=== PATIENT | female | born 2000 | race American Indian/Alaskan Native ===

== ENCOUNTER 2022-06-12 05:59 | Emergency (ER) | payer OTHER ==
[2022-06-12] MEDS ORDERED: SODIUM CHLORIDE 0.9% 1000 ML 1,000 ML IV ONE (11:32)
--- NOTE | 2022-06-12 11:55 | XRay Report ---
CHEST 2 VIEWS INDICATION / CLINICAL INFORMATION: cough. COMPARISON: None available. FINDINGS: SUPPORT DEVICES: None. HEART / MEDIASTINUM: No significant abnormality. LUNGS / PLEURA: No significant pulmonary or pleural abnormality. No pneumothorax. ADDITIONAL FINDINGS: No significant additional findings. IMPRESSION: 1. No acute findings. Signer Name: Sadi Vang MD Signed: 06/12/2022 11:50 AM Workstation Name: [id number]
--- NOTE | 2022-06-12 11:58 | Emergency Department Report ---
- General Chief Complaint: Fever Stated Complaint: SICK (FEVER) Source: EMS Mode of arrival: Stretcher Limitations: No Limitations - History of Present Illness Initial Comments: 21-year-old female presents to the ED complaining of headache ,fever ,cough and weakness x 2 days. She states that her child is sick with similar symptoms. Patient is alert and oriented x3. No acute distress noted no ill appearance noted. Denies taking any prior medication to arrival. Patient denies any past medical history. Patient denies any shortness of breath or chest pain at present time. No acute distress noted. No ill appearance noted. He is alert and oriented times.] MD Complaint: fever, cough, nasal congestion, sinus pain Onset/Timin -: days(s) - Related Data Previous Rx's Medication Instructions Recorded Last Taken Type Amoxicillin/K Clav Tab [Augmentin 1 tab PO Q12HR 10 Days #20 tab 06/12/22 Unknown Rx 875 mg] Brompheniramine/Pseudoephed/Dm 5 ml PO DAILY 5 Days #118 ml 06/12/22 Unknown Rx [Bromfed Dm Cough Syrup] Ketorolac [Toradol] 10 mg PO Q6H PRN 5 Days #20 tab 06/12/22 Unknown Rx predniSONE [Deltasone] 50 mg PO QDAY 5 Days #5 tab 06/12/22 Unknown Rx Allergies Allergy/AdvReac Type Severity Reaction Status Date / Time No Known Allergies Allergy Unverified 06/12/22 06:12 ED Review of Systems ROS: Stated complaint: SICK (FEVER) Other details as noted in HPI Constitutional: denies: chills, fever Eyes: denies: eye pain, eye discharge, vision change ENT: throat pain. denies: ear pain Respiratory: cough. denies: shortness of breath, wheezing Cardiovascular: denies: chest pain, palpitations Endocrine: no symptoms reported Gastrointestinal: denies: abdominal pain, nausea, diarrhea Genitourinary: denies: urgency, dysuria, discharge Musculoskeletal: denies: back pain, joint swelling, arthralgia Skin: denies: rash, lesions Neurological: denies: headache, weakness, paresthesias Psychiatric: denies: anxiety, depression Hematological/Lymphatic: denies: easy bleeding, easy bruising ED Past Medical Hx - Past Medical History Previous Medical History?: Yes Hx Asthma: Yes - Surgical History Past Surgical History?: No - Social History Smoking Status: Never Smoker Substance Use Type: None - Medications Home Medications: Home Medications Medication Instructions Recorded Confirmed Last Taken Type Amoxicillin/K Clav Tab [Augmentin 1 tab PO Q12HR 10 Days #20 tab 06/12/22 Unknown Rx 875 mg] Brompheniramine/Pseudoephed/Dm 5 ml PO DAILY 5 Days #118 ml 06/12/22 Unknown Rx [Bromfed Dm Cough Syrup] Ketorolac [Toradol] 10 mg PO Q6H PRN 5 Days #20 tab 06/12/22 Unknown Rx predniSONE [Deltasone] 50 mg PO QDAY 5 Days #5 tab 06/12/22 Unknown Rx ED Physical Exam - General Limitations: No Limitations General appearance: alert, in no apparent distress - Head Head exam: Present: atraumatic, normocephalic - Eye Eye exam: Present: normal appearance - ENT ENT exam: Present: mucous membranes moist - Neck Neck exam: Present: normal inspection - Respiratory Respiratory exam: Present: normal lung sounds bilaterally. Absent: respiratory distress - Cardiovascular Cardiovascular Exam: Present: regular rate, normal rhythm. Absent: systolic murmur, diastolic murmur, rubs, gallop - GI/Abdominal GI/Abdominal exam: Present: soft, normal bowel sounds - Extremities Exam Extremities exam: Present: normal inspection - Back Exam Back exam: Present: normal inspection - Neurological Exam Neurological exam: Present: alert, oriented X3 - Psychiatric Psychiatric exam: Present: normal affect, normal mood - Skin Skin exam: Present: warm, dry, intact, normal color. Absent: rash ED Course Vital Signs 06/12/22 06:12 Temperature 98.8 F Pulse Rate 104 H Respiratory 18 Rate Blood Pressure 131/75 O2 Sat by Pulse 100 Oximetry ED Medical Decision Making - Lab Data Result diagrams: 06/12/22 12:01 06/12/22 12:01 - Medical Decision Making 21-year-old female presents to the ED complaining of headache ,fever ,cough and weakness x 2 days. She states that her child is sick with similar symptoms. Patient is alert and oriented x3. No acute distress noted no ill appearance noted. Denies taking any prior medication to arrival. Patient denies any past medical history. Patient denies any shortness of breath or chest pain at present time. No acute distress noted. No ill appearance noted. He is alert and oriented times. Physical examination she has postnasal drip noted, nasal congestion noted, tenderness to the frontal cavities sinus cavity upon palpation. She was given normal saline 1 L, Toradol 30 mg IV and Decadron 8 mg IV. Rechecked the patient is resting quietly , comfortable and feeling better. I discussed the results of diagnostic study, my clinical impression and the plan for further treatment with the patient. Patient agrees with plan and discharge at this present time. All question addressed. I have given the patient instruction regarding a diagnosis ,expectation ,follow- up and return precaution. I explained to the patient that emergent condition may arise and to return to the ED for new worsen and any new persisting condition. I have explained the importance of following up with the primary care physician or referral physician listed below has instructed. The patient verbalized understanding of discharge instruction. ] Critical care attestation.: If time is entered above; I have spent that time in minutes in the direct care of this critically ill patient, excluding procedure time. ED Disposition Clinical Impression: Sinusitis Qualifiers: Sinusitis location: frontal Chronicity: acute Recurrence: non-recurrent Qualified Code(s): J01.10 - Acute frontal sinusitis, unspecified Disposition: 01 HOME / SELF CARE / HOMELESS Is pt being admited?: No Does the pt Need Aspirin: No Condition: Stable Instructions: Sinusitis, Adult, [id number] Additional Instructions: Take medication as prescribed Return to ED for any worsening symptom Prescriptions: Amoxicillin/K Clav Tab [Augmentin 875 mg] 1 tab PO Q12HR 10 Days #20 tab Brompheniramine/Pseudoephed/Dm [Bromfed Dm Cough Syrup] 5 ml PO DAILY 5 Days #118 ml predniSONE [Deltasone] 50 mg PO QDAY 5 Days #5 tab Ketorolac [Toradol] 10 mg PO Q6H PRN 5 Days #20 tab PRN Reason: Pain Forms: Work/School Release Form(ED) Time of Disposition: 13:15
[2022-06-12 12:13] LABS: Hematocrit 39.5 % (30.3-42.9); Hemoglobin 12.7 gm/dl (10.1-14.3); Mean Corpuscular HGB Conc 32 % (30-34); Mean Corpuscular Volume 89 fl (79-97); Platelet Count 317 K/mm3 (140-440); Red Blood Count 4.43 M/mm3 (3.65-5.03); Red Cell Distribution Width 14.4 % (13.2-15.2)
[2022-06-12 12:34] LABS: Alanine Aminotransferase 15 units/L (7-56); Albumin 4.7 g/dL (3.9-5); BUN/Creatinine Ratio 8; Blood Urea Nitrogen 7 mg/dL (7-17); Calcium 9.3 mg/dL (8.4-10.2); Hemolysis Index 22
[2022-06-12] MEDS ORDERED: KETOROLAC 30 MG/1 ML INJ IV ONE (12:53)
[2022-06-12] MEDS ORDERED: dexAMETHasone 4 MG/ML VIAL IV ONE (12:55)
[2022-06-12 14:05] VITALS: BP 121/74
== END 2022-06-12 14:05 | disposition home or self-care (01) ==
LOC: ED 05:59
DX: J32.9 Chronic sinusitis, unspecified (principal); J45.909 Unspecified asthma, uncomplicated
CPT/HCPCS: 36415; 71046; 80053; 85027; 96361; 96374; 96375; 99284; J1100; J1885; J7030